=== PATIENT | male | born 1995 | race Caucasian/White ===

== ENCOUNTER 2019-01-05 10:45 | Emergency (ER) | payer OTHER ==
[~2019-01-05] VITALS: Ht 167.6 cm; Wt 127.0 kg
[2019-01-05 11:04] VITALS: BP 128/76
[2019-01-05] MEDS ORDERED: BACITRACIN OINT 500 UNITS/GM PKT TP ONE (11:05)
[2019-01-05] MEDS ORDERED: LIDOCAINE/EPI 1% 1:100000 20 ML VIAL INJ ONE (11:05)
--- NOTE | 2019-01-05 11:14 | NUR ---
PT TO XRAY VIA WC FROM TRIAGE AND WILL BE TAKEN TO BED 11 FROM XRAY
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
--- NOTE | 2019-01-05 12:16 | NUR ---
Patient discharged with v/s stable. Written and verbal after care instructions given and explained. Patient alert, oriented and verbalized understanding of instructions. Ambulatory with steady gait. All questions addressed prior to discharge. ID band removed. Patient advised to follow up with PMD. Rx of KEFLEX 500 MG, NAPROSYN 500 MG, BACITRACIN given. Patient educated on indication of medication including possible reaction and side effects. Opportunity to ask questions provided and answered.
[2019-01-05 12:17] VITALS: BP 130/75
== END 2019-01-05 12:16 | disposition home or self-care (01) ==
LOC: MED 10:45
DX: S62.636A Displaced fracture of distal phalanx of right little finger, initial encounter for closed fracture (principal); S60.151A Contusion of right little finger with damage to nail, initial encounter; W20.1XXA Struck by object due to collapse of building, initial encounter; Y93.89 Activity, other specified; Y92.89 Other specified places as the place of occurrence of the external cause; Y99.8 Other external cause status
CPT/HCPCS: 11740; 73140; 90471; 90715; 99283; J2001; 81025